=== PATIENT | female | born 1980 | race Caucasian/White ===

== ENCOUNTER 2016-10-31 12:50 | Day surgery (SDC) | payer BC ==
[~2016-10-31 12:50] MED LIST: DOXYCYCLINE HYCLATE 100 MG TABLET PO PRN; RINGERS SOLUTION,LACTATED 1,000 ML IV PRN
--- OUTSIDE RECORDS SUMMARY | 2016-10-31 12:53 | XMS REPORT | Continuity of Care Document ---
:1980 Author Organization [facility] Address [place] [address] Care Team Providers Name Role Phone Provider, None Per Patient Primary Care Provider Unavailable Source Comments This disclosure is being made pursuant to the [employer] program and maynot contain all information available regarding this patient.[facility] Active Allergies and Adverse Reactions Allergen Noted Date Severity Reactions Comments Penicillins 04/06/2012 Medium Nausea And Vomiting Current Medications Be aware that medications may not be up to date as of this document. Alwaysverify current medications with the patient. Prescription Sig. Disp. Refills Start Date End Date Status Montelukast Sodium Take by mouth. Active (SINGULAIR PO) loratadine (CLARITIN) 10 Take 10 mg by Active MG tablet mouth daily. Active Problems Not on file Social History Tobacco Use Types Packs/Day Years Used Date Never Smoker Alcohol Use Drinks/Week oz/Week Comments No Last Filed Vital Signs Vital Sign Reading Time Taken Blood Pressure 112/74 04/06/2012 8:54 PM SYSTEMS PROGRAMMER Pulse 67 04/06/2012 8:54 PM SYSTEMS PROGRAMMER Temperature 37.1 C (98.8 F) 04/06/2012 8:54 PM SYSTEMS PROGRAMMER Respiratory Rate 16 04/06/2012 8:54 PM SYSTEMS PROGRAMMER Height 1.735 m (5' 8.31") 06/15/2011 5:47 PM SYSTEMS PROGRAMMER Weight 93.17 kg (205 lb 6.4 oz) 06/15/2011 5:47 PM SYSTEMS PROGRAMMER Body Mass Index 30.95 06/15/2011 5:47 PM SYSTEMS PROGRAMMER Oxygen Saturation 99% 04/06/2012 8:54 PM SYSTEMS PROGRAMMER Plan of Care Health Maintenance Due Date Last Done Comments Tetanus/Pertussis (1 - Tdap) 10/31/1999 Pap Smear 2001 Retired-INFLUENZA VACCINE 12/15/2015 Results from Last 3 Months Not on file Insurance Payer Benefit Plan / Group Subscriber ID Type Phone Address [employer] [place] [id number] [phone] [id number] [place] [id number] Home: [phone] [phone] [place] [id number]
[2016-10-31 13:15] LABS: Hematocrit 43.1 % (37.0-47.0); Hemoglobin 14.7 gm/dL (12.5-16.0); Mean Corpuscular Hemoglobin 30.4 pg (27-31); Mean Corpuscular Hgb Conc 34.1 g/dl (32-36); Mean Platelet Volume 10.1 fl (6.0-9.5); Neutrophil % 54.5 % (42-75.0); Platelet Count 302 K/mm3 (150-450); Red Blood Count 4.84 M/mm3 (4.2-5.4); Red Cell Distribution Width 13.1 % (11.5-14.0); White Blood Count 7.4 K/mm3 (4.0-10.5)
[2016-10-31] MEDS ORDERED: DEXTROSE 5%-LACTATED RINGERS 1,000 ML IV ONE (13:30)
[2016-10-31] MEDS ORDERED: DOXYCYCLINE HYCLATE 100 MG TABLET ONE (13:39)
[2016-10-31] MEDS ORDERED: ONDANSETRON HCL/PF 2 MG/ML VIAL IV ONE (13:48)
[2016-10-31] MEDS ORDERED: DEXAMETHASONE SOD PHOSPHATE 10 MG/ML VIAL IV ONE (13:48)
[2016-10-31] MEDS ORDERED: BUPIVACAINE HCL/EPINEPHRINE 50 ML VIAL IJ ONE (14:25)
--- NOTE | 2016-10-31 14:42 | OR ---
Operative Report - Dictated Report Narrative: Operative report: 10/31/2016 Preoperative diagnosis: Missed Postoperative diagnosis: Same Procedure: Suction D&C Surgeon: Cheryl Iniguez D.O. Engraving Supervisor: OR staff Anesthesia: Local and sedation IV fluids: 400 Milliliters Urine output: Not applicable Findings: 8 week size uterus EBL: Minimal [place]iliters Drains: None Pathology: Products of conception Complications: None Condition: Stable The patient was taken to the operating room. Anesthesia was found to be adequate. The patient was prepped and draped in the normal sterile fashion in the dorsal lithotomy position. A sterile speculum was then inserted into the vagina. The anterior lip of the cervix was then grasped with a single-tooth tenaculum. Local anesthetic was then injected in the cervix. The cervix was then sequentially dilated to accept an 7 mm curved cannula. Suction was then applied and products of conception were removed. A sharp curettage was then performed until the cry of the uterus was noted. Again suction curettage was performed to ensure entire removal of uterine contents. Minimal bleeding was then noted from the cervix. The tenaculum was then removed. Hemostasis was obtained with pressure. The speculum was then removed. The patient tolerated the procedure well. Sponge, lap, needle, and instrument counts were correct throughout the entire procedure. The patient was taken to the recovery room in stable condition.
[2016-10-31] MEDS ORDERED: RINGERS SOLUTION,LACTATED 1,000 ML IV ONE (15:38)
[2016-10-31 17:36] VITALS: BP 116/72
== END 2016-10-31 12:51 | disposition home or self-care (01) ==
LOC: AMB 12:50
PROVIDERS: ATTEND Obstetrics & Gynecology Gynecologic Oncology
PROC: 10D17ZZ Extraction of Products of Conception, Retained, Via Natural or Artificial Opening (ICD-10-PCS; principal; 2016-10-31 14:00)
DX: O02.1 Missed abortion (principal); G47.00 Insomnia, unspecified; Z87.891 Personal history of nicotine dependence; Z68.36 Body mass index [BMI] 36.0-36.9, adult